=== PATIENT | male | born 1985 | race Caucasian/White ===

== ENCOUNTER 2018-05-15 07:09 | Emergency (ER) | payer OTHER, MEDICAID ==
[2018-05-15] MEDS: DIPHENHYDRAMINE 50 MG CAP PO (07:46)
[2018-05-15] MEDS: DEXAMETHASONE 10 MG/ML 1 ML INJ IM (07:47)
== END 2018-05-15 08:40 | disposition home or self-care (01) ==
LOC: FTE 07:09
DX: B37.9 Candidiasis, unspecified (principal); F17.210 Nicotine dependence, cigarettes, uncomplicated
CPT/HCPCS: 96372; 99284-25